=== PATIENT | female | born 1970 | race Caucasian/White ===

== ENCOUNTER 2016-06-09 03:12 | Observation (INO) ==
[2016-06-09] MEDS ORDERED: Acetaminophen 325 MG TABLET PO PRN (05:39)
[2016-06-09] MEDS ORDERED: Ondansetron 4 MG/2 ML VIAL IVP PRN (05:39)
[2016-06-09] MEDS ORDERED: Naloxone 0.4 MG/ML INJ IVP PRN (05:39)
[2016-06-09] MEDS ORDERED: 0.9 % Sodium Chloride w KCl 20 MEQ/1,000 ML MLS IVC SCH (05:45)
--- NOTE | 2016-06-09 05:54 | Internal Med History&Physical ---
Date of Encounter: 06/09/16 Time of Encounter: 05:49 Assessment and Plan (1) Syncope Current visit: No Status: Acute 1. Will cycle troponins and EKG's. 2. Will check serial glucose levels to rule out hypoglycemia. 3. Will order ECHO adn Carotid Dopplers. Qualifiers: Syncope type: unspecified Qualified Code(s): R55 - Syncope and collapse (2) Elevated troponin Current visit: No Status: Acute 1. Work-up as above. 2. Will consult Cardiology as she may invasive cardiac work-up. 3. Pt without chest pain. (3) DVT prophylaxis Current visit: Yes Status: Acute 1. Heparin SQ. Internal Medicine - H&P: HPI Chief complaint: syncope Admitted From: Hospital to Hospital Transfer Plans for Post Hospital Care: Home History of present illness: Ms. Alegria is a 45 year old female who presents in transfer from [facility] ER. She presented there earlier tonight with complaints of syncope and low blood pressure. Workup at [facility] was negative except for positive troponin of 0.06. She was therefore transferred here for further workup and care. Upon my assessment of the patient, patient feels at about baseline now. She states she used to have a history of high blood pressure and was on metoprolol and lisinopril until about 3 months ago. She was weaning herself off this blood pressure medication as she lost more than 50 pounds weight intentionally for health reasons. Since she lost the weight, her blood pressure has been stable and averaging about 130s over 80s. Earlier tonight, she noticed she was having a fluttering in her chest and felt lightheaded and dizzy. Her blood pressure was around 80s/50s. It was later 60s/30s when she passed out shortly thereafter. Her family brought her to the ER. Workup was negative except for positive troponin and sinus tachycardia on her EKG. She denied any chest pain or shortness of breath. Nonetheless, she was transferred here for further workup. She denies any history of heart disease. There is no family history of heart disease either. Her father of COPD and her mother at a young age due to an accident. Past Med Surg Social Fam HX - Past Medical History Attestation: Yes The following information was validated with the patient. Source: patient, old records reviewed Medical history: hypertension Psychiatric history: anxiety - Past Surgical History Surgical History: no surgical history - Social History Smoking Status: Current every day smoker Packs per day: 1 Smokeless Tobacco Status: No Alcohol use: none Drug use: none Current living situation: Home, With Family Recent Out of Country Travel Within the Last 8 Weeks: No - Family History Father Living Status: Age at : 63 Cause of : copd Hx Family Respiratory Disorders: Yes (copd) Mother Living Status: Hx Family Cardiac Disorders: No Hx Family Respiratory Disorders: No Internal Medicine - H&P: Meds LORazepam [Ativan] 0.5 mg PO BID PRN 06/09/16 [History] Omeprazole 20 mg PO DAILY 06/09/16 [History] Sertraline [Zoloft] 100 mg PO DAILY 06/09/16 [History] Allergies No Known Allergies Allergy (Verified 06/09/16 01:11) - Constitutional Constitutional: no chills, no fever(s) - EENT Eyes: no blurry vision, no change in vision Ears: no ear pain, no tinnitus Nose, mouth and throat: no nasal congestion, no sinus pressure, no sore throat - Cardiovascular Cardiovascular ROS IM: lightheadedness, palpitations, syncope, no chest pain, no dyspnea, no dyspnea on exertion, no edema - Respiratory Respiratory: no cough, no dyspnea, no hemoptysis, no pain on inspiration, no chest congestion, no excessive phlegm production - Gastrointestinal Gastrointestinal: abdominal pain, belching, dyspepsia, heartburn, no diarrhea, no hematemesis, no hematochezia, no melena, no nausea, no vomiting - Genitourinary Genitourinary: no dysuria, no hematuria - Musculoskeletal Musculoskeletal ROS IM: no arthralgias, no back pain, no joint swelling - Integumentary Integumentary IM: no rash, no jaundice - Neurological Neurological ROS: dizziness, no focal weakness, no frequent falls, no headache(s ) - Psychiatric Psychiatric: anxiety, depression - Endocrine Endocrine IM: no cold intolerance, no heat intolerance - Hematologic/Lymphatic Hematologic/Lymphatic: no easy bruising, no lymphadenopathy - Allergic/Immunologic Allergic/Immunologic: GI upset with certain foods, no wheezing - Constitutional Vitals: Temp Pulse Resp BP Pulse Ox 97.6 F 86 16 106/69 97 06/09/16 04:50 06/09/16 04:50 06/09/16 04:50 06/09/16 04:50 06/09/16 04:50 General appearance: Present: cooperative, A&O X 3, pleasant, no acute distress, answers questions appropriately - Head Head exam: Present: atraumatic, normal inspection - Expanded Head Exam Head exam expanded: Absent: abrasion, contusion, general tenderness - Eye Eye exam: Present: EOMI, normal appearance, PERRL. Absent: scleral icterus Pupils: Present: normal accommodation - ENT ENT exam: Present: mucous membranes moist, normal exam, normal oropharynx - Neck Neck exam general surgery: Present: full ROM, supple. Absent: lymphadenopathy, nuchal rigidity, thyromegaly - Expanded Neck Exam Neck exam: Absent: carotid bruit - Respiratory Respiratory exam: Present: CTAB. Absent: chest wall tenderness, rales, rhonchi , wheezes - Cardiovascular Cardiovascular exam: Present: RRR, +S1, +S2. Absent: diastolic murmur, JVD, systolic murmur, tachycardia - GI/Abdominal GI/Abdominal exam: Present: normal bowel sounds, soft. Absent: guarding, hepatomegaly, mass, rebound, splenomegaly, tenderness - Extremities Exam Extremities exam: Present: full ROM, normal capillary refill, warm, radial pulses palpable and symetrical. Absent: calf tenderness, joint swelling, pedal edema - Back Exam Back exam: Present: normal inspection. Absent: CVA tenderness (L), CVA tenderness (R) - Neurological Exam Neurological exam: Present: alert, CN II-XII intact, oriented X3, no focal deficits, strengths equal and symetr throughout - Psychiatric Psychiatric exam: Present: normal affect, normal mood - Skin Skin exam: Present: dry, warm. Absent: rash Internal Med - H&P Results - Labs Labs: I reviewed her labs from [facility] and they include the following: WBC 12.8 Hemoglobin 12.9 Hematocrit 37.4 Platelet count 352 Sodium 141 Potassium 3.8 Chloride 106 Carbon dioxide 23 BUN 11 Creatinine 0.69 Troponin 0.06 Urine negative I also reviewed the EKG which was negative except for sinus tachycardia. - EKG Data -: EKG Interpreted by Myself EKG shows normal: sinus rhythm Rate: tachycardia - EKG Data Prior EKG available for review: no EKG comments: 06/09/16 06:07 Sinus tachycardia
[2016-06-09] MEDS ORDERED: 0.9 % Sodium Chloride 1,000 ML ONE (09:14)
[2016-06-09] MEDS ORDERED: 0.9 % Sodium Chloride 1,000 ML IVC SCH (09:15)
[2016-06-09] MEDS: *HR* LORazepam 0.5 MG TABLET PO PRN ×2 (09:33→22:32)
[2016-06-09] MEDS: *HR* Heparin 5,000 UNIT/ML VIAL SQ SCH ×2 (09:36→18:17)
--- NOTE | 2016-06-09 10:14 | Cardiology Consult Note ---
Date of Encounter: 06/09/16 Time of Encounter: 10:11 Assessment and Plan (1) Elevated troponin Current Visit: No Status: Acute - continues to be chest pain free - history of smoking and hypertension but off medications for several months as advised by PCP - troponin downtrending, currently 0.02 (0.06) - EKG reviewed without any ischemic changes - continue with ECHO and possible stress test (2) Syncope Current Visit: No Status: Acute - syncopal episode does not appear to be cardiac in nature, likely dehydration/ hypotension - patient remains asymptomatic without subsequent episodes, was able to ambulate to the restroom without symptoms or issues - no focal neuro deficits - initial BP 100/70s currently 99/66 - vital signs in ED did not reveal orthostatic hypotension - EKG revealed and shows sinus tachycardia, no evidence of delta wave, Brugada pattern or LVH - will get carotid dopplers and ECHO today and make recommendations pending results, likely if EF is ok will get a stress test - continue with IVF Qualifiers: Syncope type: unspecified Qualified Code(s): R55 - Syncope and collapse Discussion w patient/family: The assessment and plan as outlined above was discussed with the patient and/or family members who expressed understanding and agreement. All questions were answered. Thank you for involving us in the care of your patient. Please call with any questions. History of Present Illness Consult date: 06/09/16 Requesting physician: Clarence Forde Consult reason: syncope, elevated trop Chief complaint: syncope History of present illness: Ms. Alegria is a 45 year old female with history of hypertension, tobacco abuse , and anxiety presented to the ED for syncope. She reports on date of admission that she passed out in the laundry room without any prodromal symptoms such as chest pain, shortness of breath, lightheadedness, or palpitations. Reports that a few hours prior to had awoken from a nap with a racing heart. Checked her HR and BP and read 140s and low BP 90/60. She initially attributed this to her anxiety. Denied any chest pain/discomfort, shortness of breath, headache, diaphoresis, or nausea at that time. Reports she has been off her antihypertensive medications Metoprolol and Lisinopril for several months due to better BP control and weight loss. She has been stressed with recent of grandson. Denies any recent illness but reports to not eating/drinking as much with her weight loss. PCP in [place] from [facility]. No history of cardiac ischemic disease. No history of atrial fibrillation or irregular heart rhythms. No history of sudden cardiac in the family at a young age. Denies history syncope before. Played softball without issues. Denies any history of blood clots. Important CV studies: - reported echocardiogram 5+ years ago at [facility], reported normal Past Med Surg Social Fam HX - Past Medical History Medical history: hypertension Psychiatric history: anxiety - Past Surgical History Surgical History: no surgical history - Social History Smoking Status: Current every day smoker Packs per day: 1 Smokeless Tobacco Status: No Alcohol use: none Drug use: none - Family History Father Living Status: Age at : 63 Cause of : copd Hx Family Respiratory Disorders: Yes (copd) Mother Living Status: Hx Family Cardiac Disorders: No Hx Family Respiratory Disorders: No Medications and Allergies LORazepam [Ativan] 0.5 mg PO BID PRN 06/09/16 [History] Multivitamin [Multi-Day Vitamins] 1 tab PO DAILY 06/09/16 [History] Omeprazole 20 mg PO DAILY 06/09/16 [History] Sertraline [Zoloft] 100 mg PO DAILY 06/09/16 [History] Allergies No Known Allergies Allergy (Verified 06/09/16 01:11) All Systems Review: A 10-system review of systems was performed and is negative for pertinent findings except as documented above in the HPI. - Constitutional Constitutional: no fever(s), no headache(s), no weakness - Cardiovascular Cardiovascular: as per HPI, lightheadedness, rapid heart rate, no chest pain at rest, no chest pain with exertion, no dyspnea at rest, no dyspnea on exertion - Respiratory Respiratory: no cough, no dyspnea, no hemoptysis - Gastrointestinal Gastrointestinal: nausea - Neurological Neurological: abnormal speech, syncope, no focal weakness - Psychiatric Psychiatric: anxiety Physical Examination Vital Signs, Last 4 Hours Temp Pulse Resp BP Pulse Ox 06/09/16 09:09 99/66 06/09/16 07:43 98.3 F 95 16 98/64 97 General: Conversant, No Apparent Distress HEENT: Atraumatic, Normocephaly, Mucus Membranes Moist Neck: No JVD, Normal carotid pulses Cardiac: Reg Rate and Rhythm, Normal S1 and S2, No Murmur Lungs: Normal Breath Sounds, No Wheeze, Rales, Rhonchi Neuro: Alert and responsive, No focal deficits noted Abdomen: Soft, Non-Tender Skin: No rashes noted on visualized skin Musculoskeletal: No Chest Wall Tenderness Extremities: No Clubbing, No Cyanosis, No Edema, Normal Pulses Results Lab Results 06/09/16 07:59 Troponin I 0.02 - Imaging and Cardiology Stress Test: pending Echo: pending - EKG Interpretation EKG results cardiology: personally reviewed (sinus tachycardia), normal ECG, sinus rhythm, no diagnostic ischemia, other (no evidence of Brugada pattern, delta wave, or LVH) Consult Discharge Plan - Plan Referrals: NO,PCP [Primary Care Provider] -
--- NOTE | 2016-06-09 17:42 | Event Note ---
Date of Encounter: 06/09/16 Time of Encounter: 14:00 45 year old female with h/o- HTN, currently off antihypertensives due to significant weight loss and better BP control, was admitted with syncope. Initial labs showed no acute abnormality except slight Troponin leak, which currently normalized. She was tachycardic and hypotensive at admission, with no orthostasis in ER. SHe was started on IV hydration, Cardiology consult, Echocardiogram and Carotid Doppler have been ordered. Patient seen and examined; VSS Reports feeling better; no dizziness, chest pain, dyspnea since admission; Chest- S1, S2 heard; lungs are clear to auscultation B/L Abdomen- soft and nontender Cardiology consult appreciated; Telemetry monitoring uneventful; f/up Echocardiogram and plan for stress test in am per Cardiology; check thyroid profile;
[2016-06-09] MEDS ORDERED: *HR* LORazepam 1 MG TABLET PO ONE (21:00)
[2016-06-10 04:53] LABS: Basophils % 0.4 %; Eosinophils # 0.5 K/mcL (0.0-0.6); Eosinophils % 5.9 %; Hematocrit 36.6 % (35.3-44.9); Hemoglobin 12.2 g/dL (11.5-15.4); Immature Granulocytes % 0.3 % (0-4); Lymphocytes # 3.5 K/mcL (0.6-4.6); Lymphocytes % 38.5 %; Mean Corpuscular HGB Conc 33.3 g/dL (31.6-35.5); Mean Corpuscular Hemoglobin 28.7 pg (28.0-33.3); Mean Corpuscular Volume 86.1 fL (83.0-100.0); Monocytes # 0.5 K/mcL (0.0-1.3); Monocytes % 5.6 %; Neutrophils # 4.4 K/mcL (1.6-8.9); Platelet Count 309 K/mcL (140-400); Red Blood Count 4.25 M/mcL (3.82-4.97); Red Cell Distribution Width 13.3 % (11.5-14.5); Segmented Neutrophils % 49.3 %
[2016-06-10 05:17] LABS: Alanine Aminotransferase 10 Units/L (0-55); Albumin 3.1 g/dL (3.5-5.0); Albumin/Globulin Ratio 0.9 (1.1-2.2); Alkaline Phosphatase 57 Units/L (38-126); Aspartate Amino Transferase 11 Units/L (5-34); BUN/Creatinine Ratio 25 (6-26); Bilirubin,Total 0.2 mg/dL (0.2-1.2); Blood Urea Nitrogen 15 mg/dL (7-20); Calcium 8.4 mg/dL (8.6-10.8); Carbon Dioxide 21 mEq/L (19-29); Chloride 109 mEq/L (98-109); Cholesterol 217 mg/dL (< 200); Globulin 3.3 g/dL (2.4-3.5); Glucose 94 mg/dL (70-99); HDL Cholesterol 36 mg/dL (40-59); LDL Cholesterol,Calculated 147 mg/dL (0-99); Magnesium 1.8 mg/dL (1.6-2.6); Osmolality,Calculated 289 (280-300); Potassium 3.6 mEq/L (3.5-4.5); Sodium 139 mEq/L (136-145); Total Protein 6.4 g/dL (6.0-8.3); Triglycerides 168 mg/dL (< 150); eGFR For African Americans > 60 (> 60); eGFR For Non-African Americans > 60 (> 60)
[2016-06-10 05:29] LABS: Thyroid Stimulating Hormone 1.205 mcIU/mL (0.350-4.840)
[2016-06-10] MEDS: *HR* Heparin 5,000 UNIT/ML VIAL SQ SCH (06:08)
[2016-06-10] MEDS ORDERED: Regadenoson 0.4 MG/5 ML SYRINGE IVP ONE (06:17)
--- NOTE | 2016-06-10 08:25 | Cardiology Progress Note ---
Date of Encounter: 06/10/16 Time of Encounter: 08:35 Assessment and Plan (1) Elevated troponin Current Visit: No Status: Acute Per Cardiology: Remains chest pain-free. Initial troponin mildly elevated at 0.06 with subsequent 3 troponins negative. Unclear clinical significance. Echo showed EF preserved 60s 65%, no stiff valvular dysfunction, no segmental wall motion abnormalities. Stress test pending. Further recs after stress test. No cardiac rehabilitation warranted at this time. (2) Syncope Current Visit: No Status: Acute Per Cardiology: Syncopal episode does not appear to be cardiac in nature, likely dehydration/ hypotension. Systolic blood pressure currently stable. Preliminary carotid duplex showed normal carotids. Telemetry reviewed and showed average heart rate 86, sinus rhythm, no significant events or pauses noted. Qualifiers: Syncope type: unspecified Qualified Code(s): R55 - Syncope and collapse Discussion w patient/family: The assessment and plan as outlined above was discussed with the patient who expressed understanding and agreement. All questions were answered. Thank you for involving us in the care of your patient. Please call with any questions. Subjective Principal diagnosis: Syncope Interval history: Patient denies any concerns or complaints. She denies any dizziness, chest pain , short of breath, palpitations. Inquiring into going home. Objective Selected Entries 06/10/16 04:00 06/10/16 04:34 Temperature 97.9 F Pulse Rate 79 Respiratory Rate 16 Blood Pressure 108/68 O2 Sat by Pulse Oximetry 99 Oxygen Delivery Method Room Air General: Conversant, No Apparent Distress HEENT: Atraumatic, Normocephaly Cardiac: Reg Rate and Rhythm, Normal S1 and S2, No Murmur Lungs: Normal Breath Sounds, No Wheeze, Rales, Rhonchi Neuro: Alert and responsive, No focal deficits noted Extremities: No Edema Results 06/10/16 04:12 06/10/16 04:12 Lab Results Laboratory Tests 06/09/16 06/09/16 06/09/16 07:59 14:36 20:29 Troponin I 0.02 0.01 0.00 LDL Cholesterol, Calc TSH 06/10/16 04:12 Troponin I LDL Cholesterol, Calc 147 H TSH 1.205 ITS Impressions Chest X-Ray 06/09/16 05:48 IMPRESSION: Stable exam without evidence for acute cardiopulmonary process. D/ / 06/09/2016 07:28:41 Adan Laura MD / [facility] Interpreting Provider: Adan Laura MD Active Medications Acetaminophen (Tylenol) 650 mg PO Q6HR PRN PRN Reason: Mild Pain (1-3) Stop: 12/09/16 05:40 Heparin Sodium (Porcine) (Heparin) 5,000 unit SQ Q12HCO [facility] Stop: 12/09/16 07:01 Last Admin: 06/10/16 06:08 Dose: Not Given Sodium Chloride (0.9 % Sodium Chloride) 1,000 mls @ 80 mls/hr IVC .[id number] [facility] Stop: 12/09/16 09:16 Last Admin: 06/09/16 12:00 Dose: 80 mls/hr Lorazepam (Ativan) 0.5 mg PO BID PRN PRN Reason: Anxiety Stop: 12/09/16 05:49 Last Admin: 06/09/16 22:32 Dose: 0.5 mg Naloxone HCl (Narcan) 0.4 mg IVP Q2MIN PRN PRN Reason: Opioid Reversal Stop: 12/09/16 05:40 Omeprazole (Prilosec) 20 mg PO DAILY [facility] Stop: 12/09/16 09:01 Last Admin: 06/09/16 09:33 Dose: 20 mg Ondansetron HCl (Zofran) 4 mg IVP Q8HR PRN PRN Reason: Nausea And Vomiting Stop: 12/09/16 05:40 Sertraline HCl (Zoloft) 100 mg PO DAILY [facility] Stop: 12/09/16 09:01 Last Admin: 06/09/16 09:33 Dose: 100 mg - Imaging and Cardiology Stress Test: pending Echo: pending - EKG Interpretation EKG results cardiology: other (24 hr tele reviewed with avg HR 86, no events noted) Consult Discharge Plan - Plan Referrals: NO,PCP [Primary Care Provider] -
--- NOTE | 2016-06-10 10:12 | ECHO - Doppler Report ---
Echocardiogram Name: Giselle Alegria Date of Study: 06/09/2016 Date: 1970 Ht: 67.0 in Medical Record#: [id number] Age: 45 Wt: 205.0 lb Gender: Female BSA: 2.04 Order #: [id number] Location: [facility] Room #: [id number] Reading Physician: Jo Brewster DO Director Digital Advertising: Mariah Briones RDCS Ordering Physician: Clarence Forde MD Primary Physician: None Indications: Syncope Impressions: LVEF 60-65%. Normal left ventricular size and systolic function. Normal diastolic function of the left ventricle. Normal right ventricular size and function. No significant valvular dysfunction. No pulmonary hypertension. Left Ventricular Wall Motion: Rest Echo Findings All wall segments showed normal motion. Findings: Study Quality * Technically adequate exam. ECG Findings * Normal sinus rhythm. Left Ventricle * LVEF 60-65%. * Normal LV chamber size, wall thickness and function. * Normal left ventricular diastolic function. Left Atrium * Normal left atrial size. Mitral Valve * Normal mitral valve structure. * No mitral stenosis. * Trace mitral regurgitation. Aortic Valve * No aortic regurgitation. * No aortic stenosis. * Not well visualized. Tricuspid Valve * Tricuspid valve not well visualized. * Trace tricuspid regurgitation. * Estimated RA pressure is 3 mmHg. * Estimated RVSP is 21 mmHg. * No pulmonary hypertension. Pulmonic Valve * Pulmonic valve is not well visualized. * No pulmonic stenosis. * No pulmonic regurgitation. Pulmonary Artery * Pulmonary artery not well visualized. Right Atrium * Normal right atrial size. Right Ventricle * Normal right ventricular structure and function. Interatrial Septum * Interatrial septum not well evaluated. IVC * The IVC is not dilated. Pericardium * There is no pericardial effusion present. Aorta * Not well visualized. History Hypertension History of Smoking Years 5 Packs 1 Measurements: BP: 97/ 62 2D Normal Values IVSd: 1.00 cm 0.6 - 1.0 cm LVIDd: 5.00 cm 3.7 - 5.6 cm LVPWd: 1.00 cm 0.6 - 1.1 cm LVIDs: 2.90 cm 1.5 - 3.6 cm AO: 3.00 cm < 4.0 cm LA: 3.20 cm 2.0 - 4.0cm %FS: 48.30 cm >25 % LA volume: 55 Mitral Valve Peak E:.92 m/sec Peak A:.66 m/sec E/A Ratio:1.4 Peak E' Lat Christopher:13.1 cm/s Peak E' Med Christopher:11.6 cm/s E/E' Lat Ratio:7 E/E' Med Ratio:7.9 Aortic Valve AI pressure Half-time: 492.00 msec Tricuspid Valve TV Regurg Peak Grad: 18.00mmHg TV Regurg Peak Christopher: 2.12m/sec Updated by Jo Brewster on 06/10/2016 10:02:55 AM electronically signed on 06/10/2016 10:07:58 AM with status of Final Wall Motion Gaytan: 1=Normal, 2=Hypokinesis, 3=Akinesis, 4=Dyskinesis, 5=Aneurysmal, 6=Hyperkinetic, X=Not Visualized (Blank)=Missing
[2016-06-10 11:30] VITALS: BP 110/69
--- NOTE | 2016-06-10 12:14 | Nuclear Medicine Stress Report ---
Low Level Regadenoson Name: Giselle Alegria Date of Study: 06/10/2016 Date: 1970 Ht: 66.0 in Medical Record#: [id number] Age: 45 Wt: 218.0 lb Gender: Female Order #: [id number] Location: [facility] Room: [facility] Supervising Provider: Franklin Verdin CNP Reading Physician: Jo Brewster DO Ordering Physician: Zaida Henson MD Primary Care Physician: None Stress Technologist: Kim Benavidez ASSOCIATE SALES MANAGER, CCT Track Surfacing Machine Operator: Kamilla Phillip Indications: HYPOTENSIVE Impression: Perfusion imaging was negative for ischemia or infarct. Low level exercise ECG was negative for ischemia. Normal blood pressure response to low level exercise. Gated EF = 62%. History: Hypertension History of Smoking Stress Test Summary: Stress Test Type: Low level pharmacologic Regadenoson 0.4mg/5ml given IV Baseline Information: Initial Heart Rate: 86 Blood Pressure: 110/58 Stress Information: Stress Time: 4 min 00 sec Test Terminated Due to (primary): As per protocol Maximum Blood Pressure: 140/82 Maximum Heart Rate: 118 Percent Maximum Heart Rate Achieved: 67 Double Product: 11628 METS Reached: 2.1 Symptoms: No chest symptoms Nuclear Summary: SPECT myocardial perfusion imaging using Tc99m Sestamibi given intravenously was performed at rest and following cardiac stress testing. The resting images were obtained following initial dose of 10.6 mCi. Following stress an additional dose of 34.8 mCi was given at peak exercise or 30 seconds post regadenoson infusion. Medication Given: Time Medication Dose Units Route Findings: Stress Note * Resting ECG demonstrated normal sinus rhythm with normal ECG findings. * No arrhythmias were noted during stress. * Patient had no chest pain during stress. * Low level exercise/ pharmacologic stress ECG is negative for ischemia at level of heart rate achieved. Hemodynamic responses * Normal hemodynamic responses to low level exercise plus pharmacologic stress. Study Quality * Study quality was fair. Motion correction was applied. Gated EF % * Gated EF = 62%. Left Ventricle * The left ventricle is not dilated. TID * No evidence of transient ischemic dilatation. Lung Uptake * There is no evidence of increase lung uptake. NORMALS * Normal wall motion. * Normal segmental perfusion in stress. * Normal Segmental Perfusion in rest. Updated by Jo Brewster on 06/10/2016 12:07:43 PM electronically signed on 06/10/2016 12:09:09 PM with status of Final
--- NOTE | 2016-06-10 12:30 | Event Note ---
Date of Encounter: 06/10/16 Time of Encounter: 12:30 - Cardiology Event Note Stress test negative for ischemia or infarct. We'll sign off, re-consult as needed, recommend follow-up with PCP. Patient agreeable to plan. All questions answered.
--- NOTE | 2016-06-10 14:15 | Discharge Summary ---
Date of Encounter: 06/10/16 Time of Encounter: 12:00 - Discharge Diagnosis (1) Elevated troponin Priority: Primary Status: Resolved Comments: Patient presented with pre-syncipe it low blood pressures, no chest pain She did not have chest pain and remained chest pain-free through hospitalization CXR/EKG unremarkable Initial troponin mildly elevated at 0.06 with subsequent 3 troponins negative. Echo showed EF preserved 60s 65%, no stiff valvular dysfunction, no segmental wall motion abnormalities. Stress test no ischemia It is possible her presyncope to dehydration, and patient was encouraged to stay hydrated BP has remained WNL Follow up with PCP Plan of care discussed, verbalized understanding (2) Syncope Priority: Primary Status: Acute Qualifiers: Syncope type: unspecified Qualified Code(s): R55 - Syncope and collapse - Discharge Medications Home Medications: LORazepam [Ativan] 0.5 mg PO BID PRN 06/09/16 [History] Multivitamin [Multi-Day Vitamins] 1 tab PO DAILY 06/09/16 [History] Omeprazole 20 mg PO DAILY 06/09/16 [History] Sertraline [Zoloft] 100 mg PO DAILY 06/09/16 [History] Allergies/Adverse Reactions: Allergies No Known Allergies Allergy (Verified 06/09/16 01:11) Procedures/tests Complete & Pending: Procedures Performed prior 72 hours Category Date Time Status NM jeff perf SPECT multi [NM] Routine Exams 06/09/16 17:44 Taken ECG 12 lead ECG [ECG] AM 0600 Y 06/09/16 06:00 Ordered EV carotid duplex imaging BI Routine Y 06/09/16 05:47 Completed EV echocardiogram Routine Y 06/09/16 05:47 Completed SP pharm nuclear stress Routine Y 06/10/16 07:35 Completed Date of admission: 06/09/16 04:21 Primary care physician: PCP NO Consults: 06/09/16 05:47 Consult to Physician [CONS] Routine Consulting Provider: Edward Vogel Reason for Consult: syncope; troponin elevation Call Completed: No Discharging clinician: Tk Ramos Anticipated date of discharge: 06/10/16 - Patient Status Disposition: Home, Self-Care Condition: Good Functional capacity at discharge: independent ambulation Overall status at discharge: patient is back to baseline - Discharge Instructions Follow Up With: NO,PCP [Primary Care Provider] - - Diet and Activity Activity: resume usual activities as tolerated Diet: advance to your usual diet Interval History: See below Hospital course: Ms. Alegria is a 45 year old female Patient being worked up for hypotension, slighlty elevated troponins and pre- syncope She was hydrated with IVF Work up for syncope and slightly elevated troponin unremarkable She is stable for discharge to follow up with PCP She is asymptomatic at this tie - Time Spent with Patient Total time spent providing and/or coordinating discharge services: Less than 30 minutes - Constitutional Vitals: Temp Pulse Resp BP Pulse Ox 98.1 F 82 18 110/69 97 06/10/16 11:29 06/10/16 11:29 06/10/16 11:29 06/10/16 11:29 06/10/16 11:29 General appearance: Present: cooperative, A&O X 3, pleasant, no acute distress, answers questions appropriately - Head Head exam: Present: atraumatic, normocephalic - Eye Eye exam: Present: PERRL, conjuntiva pink, sclera anicteric Pupils: Present: PERRL - Neck Neck exam general surgery: Present: supple, trachea midline. Absent: lymphadenopathy - Respiratory Respiratory exam: Present: CTAB. Absent: accessory muscle use, rales, rhonchi, wheezes - Cardiovascular Cardiovascular exam: Present: RRR, +S1, +S2. Absent: diastolic murmur, gallop, rubs, systolic murmur - GI/Abdominal GI/Abdominal exam: Present: normal bowel sounds, soft, no peritoneal signs. Absent: distended, tenderness - Extremities Exam Extremities exam: Present: warm, radial pulses palpable and symetrical. Absent : calf tenderness, cyanotic, pedal edema - Neurological Exam Neurological exam: Present: CN II-XII intact, oriented X3, no focal deficits. Absent: pronater drift, facial droop, speech deficit - Skin Skin exam: Present: dry, intact
--- NOTE | 2016-06-10 19:30 | Carotid Imaging Report ---
Carotid Duplex Patient Name:Giselle Alegria Order Number:[id number] Procedure Date:06/09/2016 Date:1970Age:45 yrs Gender:Female Rt.BP:97 / 62 mmHgHeart Rate: Location:[facility] Room #: 36 Radio Tower Technician:Mariah Briones, [facility] Referring MD:Clarence Forde MD ball winder:None Reading MD:Sampson Bundy MD , FACS Primary Indications:Syncope and collapse Risk Factors Yes/No Hypertension Yes Smoking Current Yes Impressions: Findings: Bilateral carotid system is essentially normal. Recommendations: Test completed on 06/09/2016 at 6:43:00 pm. Findings Carotid Duplex: Blackburn scale imaging combined with Doppler flow analysis suggests normal findings bilaterally. Right: The right proximal common carotid artery has a PSV of 130 cm/s and a EDV of 23 cm/s. The right mid common carotid artery has a PSV of 144 cm/s and a EDV of 24 cm/s. The right distal common carotid artery has a PSV of 133 cm/s and a EDV of 31 cm/s. The right bifurcation has a PSV of 122 cm/s and a EDV of 28 cm/s. The right proximal internal carotid artery has a PSV of 161 cm/s and a EDV of 30 cm/s. The right mid internal carotid artery has a PSV of 94 cm/s and a EDV of 32 cm/s. The right distal internal carotid artery has a PSV of 100 cm/s and a EDV of 33 cm/s. The right eca has a PSV of 126 cm/s and a EDV of 30 cm/s. The right vertebral artery was not well visualized. Left: The left proximal common carotid artery has a PSV of 144 cm/s and a EDV of 27 cm/s. The left mid common carotid artery has a PSV of 154 cm/s and a EDV of 36 cm/s. The left distal common carotid artery has a PSV of 161 cm/s and a EDV of 33 cm/s. The left bifurcation has a PSV of 140 cm/s and a EDV of 31 cm/s. The left proximal internal carotid artery has a PSV of 112 cm/s and a EDV of 29 cm/s. The left mid internal carotid artery has a PSV of 89 cm/s and a EDV of 30 cm/s. The left distal internal carotid artery has a PSV of 96 cm/s and a EDV of 37 cm/s. The left eca has a PSV of 169 cm/s and a EDV of 27 cm/s. The left vertebral artery has a PSV of 63 cm/s and a EDV of 17 cm/s. There is antegrade spectral Doppler flow patterns. Prior Study: No prior study available for comparison. Carotid Results Right PSV EDV Assessment Proximal CCA 130 23 Mid CCA 144 24 Distal CCA 133 31 Bifurcation 122 28 Proximal ICA 161 30 Mid ICA 94 32 Distal ICA 100 33 ECA 126 30 Left PSV EDV Assessment Proximal CCA 144 27 Mid CCA 154 36 Distal CCA 161 33 Bifurcation 140 31 Proximal ICA 112 29 Mid ICA 89 30 Distal ICA 96 37 ECA 169 27 Vertebral Artery 63 17 Antegrade Flow Ratio's Right ICA/CCA Ratio: 1.12 ICA/CCA Values: 161/144 Left ICA/CCA Ratio: 0.72 ICA/CCA Values: 112/154 Updated by Sampson Bundy MD, FACS on 06/10/2016 7:22:43 PM Sampson Bundy MD electronically signed on 06/10/2016 7:26:32 PM with status of Final
== END 2016-06-10 16:52 | disposition home or self-care (01) ==
LOC: 3BNU → SUATTDRO 04:21
PROVIDERS: ADMIT Internal Medicine; ATTEND Internal Medicine